=== PATIENT | male | born 1950 ===

== ENCOUNTER 2016-08-19 12:15 | Emergency (ER) | payer BC, OTHER ==
--- NOTE | 2016-08-19 12:18 | UC ---
General HPI - HPI Summary HPI Summary: advise to come to urgent care for evaluation and treatment of low potassium called by MD and told to go to urgent care to get replacement treatment - History of Current Complaint Chief Complaint: UCGeneralIllness Stated Complaint: LOW K Time Seen by Provider: 08/19/16 12:17 Hx Obtained From: Patient Onset/Duration: Gradual Onset, Lasting Days, Still Present Timing: Constant Current Severity: None Pain Intensity: 0 - Allergy/Home Medications Allergies/Adverse Reactions: Allergies Allergy/AdvReac Type Severity Reaction Status Date / Time Levofloxacin [From Levaquin] Allergy Insomnia Verified 08/19/16 12:31 SSRI Allergy Anxiety Uncoded 08/19/16 12:31 Home Medications: Home Medications Ibuprofen [Ibuprofen 200 MG] 200 mg PO Q6H PRN 08/19/16 [History Confirmed 08/19] oxyCODONE/Acetamin 5/325 MG* [Percocet 5/325 TAB*] 1 tab PO Q4H PRN 08/19/16 [ History Confirmed 08/19/16] PMH/Surg Hx/FS Hx/Imm Hx Previously Healthy: No - scarcodosis Cardiovascular History: Hypertension Cancer History: Prostate Cancer Other History Of: Negative For: Anticoagulant Therapy - Surgical History Surgical History: Yes Surgery Procedure, Year, and Place: VASECTOMY, OFFICE. 1992 BRONCHOSCOPY , [facility]. [place] [facility] [place] [facility] [place] - Family History Known Family History: Positive: None Family History: no reported cardio vascular issues in family lineage - Social History Occupation: Retired Lives: With Family Alcohol Use: None Substance Use Type: None Review of Systems Constitutional: Negative Skin: Negative Eyes: Negative ENT: Negative Respiratory: Negative Cardiovascular: Negative Gastrointestinal: Negative Genitourinary: Negative Motor: Negative Neurovascular: Negative Musculoskeletal: Negative Neurological: Negative Psychological: Negative All Other Systems Reviewed And Are Negative: Yes Physical Exam Triage Information Reviewed: Yes Appearance: Well-Appearing, No Pain Distress, Well-Nourished Vital Signs Reviewed: Yes Eye Exam: Normal Eyes: Positive: Conjunctiva Clear ENT Exam: Normal ENT: Positive: Normal ENT inspection, Hearing grossly normal. Negative: Nasal congestion, Nasal drainage, Trismus, Muffled/hoarse voice Dental Exam: Normal Neck exam: Normal Neck: Positive: Supple, Nontender Respiratory Exam: Normal Respiratory: Positive: Chest non-tender, No respiratory distress, No accessory muscle use Cardiovascular Exam: Normal Cardiovascular: Positive: RRR, Pulses Normal, Brisk Capillary Refill Abdominal Exam: Normal Abdomen Description: Positive: Nontender, No Organomegaly, Soft Bowel Sounds: Positive: Present Musculoskeletal Exam: Normal Musculoskeletal: Positive: Strength Intact, ROM Intact, No Edema Neurological Exam: Normal Neurological: Positive: Alert, Muscle Tone Normal Psychological Exam: Normal Skin Exam: Normal Course/Dx - Course Course Of Treatment: transfer to [facility] [place] - Differential Dx - Multi-Symptom Differential Diagnoses: Metabolic Abnormality Provider Diagnoses: low potassium - Physician Notifications Discussed Patient Care With: Barbara Arana Time Discussed With Above Provider: 12:30 Instructed by Provider To: Transfer Discharge - Discharge Plan Condition: Stable Disposition: AGAINST MEDICAL ADVICE
[2016-08-19 12:30] VITALS: BP 141/77
== END 2016-08-19 12:34 | disposition left against medical advice (07) ==
LOC: UCEAST 12:15
DX: E87.6 Hypokalemia (principal); I10 Essential (primary) hypertension; Z85.46 Personal history of malignant neoplasm of prostate
CPT/HCPCS: 93005; 99202; G0463

== ENCOUNTER 2016-08-19 12:56 | Emergency (ER) | payer OTHER ==
[2016-08-19 13:04] VITALS: BP 116/79
[2016-08-19 14:20] LABS: BUN/Creatinine Ratio 11.9 (8-20); Calcium 9.6 mg/dL (8.6-10.3); EGFR Non-African American 52.9 (>60); Potassium 3.5 mmol/L (3.5-5.0)
[2016-08-19] MEDS ORDERED: Potassium Chlor TAB* 20 MEQ TAB.ER PO ONE (14:39)
--- NOTE | 2016-08-19 18:14 | ED ---
Pool Ernst Alfonso, scribed for Brady Osborne MD on 08/19/16 at 1442 . Complex/Multi-Sys Presentation - HPI Summary HPI Summary: This patient is a 65 year old M presenting to [facility] with a chief complaint of low potassium since earlier today. 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 Pt rates the pain 0/10 in severity. Symptoms aggravated and alleviated by nothing. Pt reports chronic flank pain for which he is prescribed Percocet. - History Of Current Complaint Chief Complaint: EDGeneral Time Seen by Provider: 08/19/16 14:33 Hx Obtained From: Patient Onset/Duration: Sudden Onset, Lasting Hours - Earlier today, Still Present Timing: Constant Severity Currently: Mild Severity Initially: Mild Location: Negative Aggravating Factor(s): Nothing Alleviating Factor(s): Nothing - Allergies/Home Medications Allergies/Adverse Reactions: Allergies Allergy/AdvReac Type Severity Reaction Status Date / Time Levofloxacin [From Levaquin] Allergy Insomnia Verified 08/19/16 12:31 SSRI Allergy Anxiety Uncoded 08/19/16 12:31 PMH/Surg Hx/FS Hx/Imm Hx Endocrine/Hematology History: Denies: Hx Anticoagulant Therapy, Hx Diabetes, Hx Thyroid Disease Cardiovascular History: Reports: Hx Hypertension Denies: Hx Pacemaker/ICD Respiratory History: Reports: Hx Chronic Obstructive Pulmonary Disease (COPD), Hx Sleep Apnea - RECENTLY DIAGNOSIS, Other Respiratory Problems/Disorders - OCCASIONAL SHORTNESS OF BREATH Denies: Hx Asthma GI History: Reports: Hx Gastroesophageal Reflux Disease, Hx Hiatal Hernia - SURGICALLY REPAIRED 1999 History: Reports: Other Problems/Disorders - HISTORY OF PROSTATECTOMY Denies: Hx Renal Disease Musculoskeletal History: Reports: Hx Tendonitis - RIGHT ELBOW Sensory History: Reports: Hx Contacts or Glasses - GLASSES Denies: Hx Hearing Aid Opthamlomology History: Reports: Hx Contacts or Glasses - GLASSES Neurological History: Reports: Hx Migraine - SIDE EFFECT OF SARCARDIOSIS, Other Neuro Impairments/Disorders - SYSTEMIC INFLAMMATION Denies: Hx Dementia, Hx Seizures Psychiatric History: Denies: Hx Substance Abuse - Cancer History Cancer Type, Location and Year: prostate - Surgical History Surgery Procedure, Year, and Place: VASECTOMY, OFFICE. 1992 BRONCHOSCOPY , [facility]. 1999 [place] [facility] [place] [facility] [place]x Anesthesia Reactions: No Infectious Disease History: Denies: Hx Hepatitis, Hx Human Immunodeficiency Virus (HIV), Traveled Outside the [place] in Last 30 Days - Family History Known Family History: Negative: Cardiac Disease Family History: no reported cardio vascular issues in family lineage - Social History Alcohol Use: None Substance Use Type: Reports: None Smoking Status (MU): Former Smoker Review of Systems Negative: Fever Positive: Other - Positive chronic flank pain Positive: Other - Positive low potassium" All Other Systems Reviewed And Are Negative: Yes Physical Exam Triage Information Reviewed: Yes Vital Signs On Initial Exam: Initial Vitals Temp Pulse Resp BP Pulse Ox 99.1 F 115 17 116/79 92 08/19/16 13:02 08/19/16 13:02 08/19/16 13:02 08/19/16 13:02 08/19/16 13:02 Vital Signs Reviewed: Yes Appearance: Positive: Well-Appearing, No Pain Distress Skin: Positive: Warm, Skin Color Reflects Adequate Perfusion, Dry Head/Face: Positive: Normal Head/Face Inspection Eyes: Positive: Normal ENT: Positive: Normal ENT inspection Neck: Positive: Supple, Nontender Respiratory/Lung Sounds: Positive: Clear to Auscultation, Breath Sounds Present Cardiovascular: Positive: RRR Abdomen Description: Positive: Nontender, Soft Bowel Sounds: Positive: Present Musculoskeletal: Positive: Normal, Strength/ROM Intact Neurological: Positive: Normal, Sensory/Motor Intact, Alert, Oriented to Person Place, Time, CN Intact II-III Psychiatric: Positive: Affect/Mood Appropriate Diagnostics - Vital Signs Vital Signs Temp Pulse Resp BP Pulse Ox 08/19/16 13:02 99.1 F 115 17 116/79 92 - Laboratory Lab Results: Lab Results 08/19/16 Range/Units 13:29 Sodium 128 L (133-145) mmol/L Potassium 3.5 (3.5-5.0) mmol/L Chloride 89 L (101-111) mmol/L Carbon Dioxide 30 (22-32) mmol/L Anion Gap 9 (2-11) mmol/L BUN 16 (6-24) mg/dL Creatinine 1.35 H (0.67-1.17) mg/dL Est GFR ( Amer) 68.0 (>60) Est GFR (Non-Af Amer) 52.9 (>60) BUN/Creatinine Ratio 11.9 (8-20) Glucose 115 H (70-100) mg/dL Calcium 9.6 (8.6-10.3) mg/dL Result Diagrams: 08/19/16 13:29 Lab Statement: Any lab studies that have been ordered have been reviewed, and results considered in the medical decision making process. Complex Multi-Symp Course/Dx Course Of Treatment: Mr. Pearl was noted on routine bloodwork to have a low K (2.8) on and was sent in with that concern. It had been noted to be dropping and he was advised to stop his diuretic several days ago. Here his K was back up to 3.5 and he was given an oral dose and advised to F/U with his PMD. - Diagnoses Provider Diagnoses: Hypokalemia Discharge - Discharge Plan Condition: Stable Disposition: HOME Patient Education Materials: Hypokalemia (ED), Potassium Content of Foods List (ED) Referrals: Alpesh Monterroso MD [Primary Care Provider] - 2 Days The documentation as recorded by the Pool sunshine Alfonso accurately reflects the service I personally performed and the decisions made by me, Brady Osborne MD.
== END 2016-08-19 14:55 | disposition home or self-care (01) ==
LOC: ED 12:56
DX: E87.6 Hypokalemia (principal); R10.84 Generalized abdominal pain; Z87.891 Personal history of nicotine dependence
CPT/HCPCS: 36415; 80048; 99282; A9270-GY

== ENCOUNTER 2016-09-11 10:40 | Inpatient (IN) | payer OTHER ==
[2016-09-11 12:15] LABS: Hematocrit 30 % (42-52); Hemoglobin 9.9 g/dl (14.0-18.0); Mean Corpuscular HGB Conc 33 g/dl (31-36); Mean Corpuscular Hemoglobin 29 pg (27-31); Mean Corpuscular Volume 86 fL (80-94); Mean Platelet Volume 7 um3 (7.4-10.4); Red Blood Count 3.46 10^6/ul (4.0-5.4); Red Cell Distribution Width 15 % (10.5-15); White Blood Count 14.3 10^3/ul (3.5-10.8)
[2016-09-11 12:29] LABS: Troponin I 0.03 ng/mL (<0.04)
[2016-09-11 12:31] LABS: Urine Bacteria Absent (Absent); Urine Bilirubin Negative (Negative); Urine Glucose 1+(50 mg/dL) (Negative); Urine Nitrite Negative (Negative)
[2016-09-11 12:34] LABS: Albumin 2.6 g/dL (3.2-5.2); BUN/Creatinine Ratio 29.1 (8-20); EGFR African American 56.7 (>60); EGFR Non-African American 44.1 (>60); Globulin 4.1 g/dL (2-4); Potassium 4.5 mmol/L (3.5-5.0); Total Bilirubin 1.5 mg/dL (0.2-1.0); Total Protein 6.7 g/dL (6.4-8.9)
[2016-09-11] MEDS ORDERED: NS 0.9% 1000 ML* 2,900 ML IV ONE (12:39)
--- NOTE | 2016-09-11 12:49 | RAD ---
INDICATION: Altered mental status, adrenal tumor. COMPARISON: There are no prior studies available for comparison. TECHNIQUE: Contiguous axial sections of the brain were obtained from the skull base to the vertex without contrast. FINDINGS: The ventricles, cisterns and sulci are enlarged consistent with age-related atrophy. No significant focal abnormality or mass effect is seen. There is no evidence for hemorrhage. No significant focal osseous abnormality is seen. The visualized portion of the paranasal sinuses and mastoid air cells appear clear. IMPRESSION: NO EVIDENCE FOR ACUTE INTRACRANIAL ABNORMALITY.
--- NOTE | 2016-09-11 13:25 | RAD ---
INDICATION: Altered mental status. Leukocytosis. Prostate and adrenal cancer. History of sarcoidosis. COMPARISON: June 21, 2006 TECHNIQUE: Dual energy PA and routine lateral views of the chest were obtained. REPORT: Moderate LEFT subpulmonic pleural effusion with associated basilar atelectasis. Clear RIGHT lung and pleural space. Elevated lung volumes. Diffuse mild prominence of interstitial markings. Negative for pneumothorax. Negative for cardiomegaly unremarkable central pulmonary vasculature. Nodular bilateral hilar contours and prominent RIGHT paratracheal stripe corresponding with mediastinal and hilar adenopathy on June 15, 2003 CT attributable to sarcoidosis. IMPRESSION: 1. Suggestion of moderate LEFT subpulmonic pleural effusion with associated basilar atelectasis. Pneumonia at the LEFT lung base not entirely excluded. 2. Stigmata of chronic obstructive pulmonary disease. 3. Sarcoidosis with mediastinal and hilar adenopathy as well as probable mild interstitial involvement.
[2016-09-11] MEDS ORDERED: cefTRIAXone VIAL(*) 1,000 MG in NS 0.9% 50 ML* 50 ML IVPB ONE (13:34)
[2016-09-11] MEDS ORDERED: Azithromycin IV(*) 500 MG in NS 0.9% 250 ML* 250 ML IVPB ONE (13:35)
[2016-09-11 13:44] LABS: C Reactive Protein 350.05 mg/L (< 5.00)
[2016-09-11] MEDS ORDERED: Azithromycin IV* 500 MG ADVAN VIAL IVPB ONE (14:14)
[2016-09-11] MEDS ORDERED: Al Hydrox/Mg Hydrox/Simet LIQ* 30 ML UDC PO PRN (14:47)
[2016-09-11] MEDS: traMADol TAB* 50 MG PO PRN (14:58)
[2016-09-11] MEDS ORDERED: NS 0.9% 1000 ML* 1,000 ML IV SCH (15:00)
--- NOTE | 2016-09-11 15:48 | RAD ---
INDICATION: Sarcoidosis. Adrenal mass. COMPARISON: External CT abdomen August 10, 2016; CT chest/abdomen/pelvis June 15, 2003 TECHNIQUE: Axial source images were obtained from the thoracic inlet to the symphysis pubis pubis. The examination was ordered without oral or intravenous contrast thus limiting evaluation of the solid viscera. Coronal and sagittal reconstructed images were acquired. CHEST FINDINGS: Neck/thyroid: The visualized neck to include the thyroid appear normal. Chest wall: There are no acute abnormalities of the bony thorax or chest wall. There is no supraclavicular, infraclavicular, or axillary lymphadenopathy. Lungs : There are multiple centimeter and smaller pulmonary parenchymal masses. These involve the upper and lower lung mcmahon bilaterally. The nodules were not present in 2004. There is new infiltrative change with consolidation in the medial left lung base new since the external 2016 examination. Cardiomediastinal structures: The heart is normal in size. There is no pericardial effusion. There is no evidence of aortic aneurysm or dissection. The pulmonary vessels appear normal. There is extensive mediastinal/hilar lymphadenopathy. Some of the lymph nodes are calcified. This is been documented previously. The esophagus appears normal. There is postoperative change compatible with Mirna fundoplication, however. Pleura : There are no pleural-based masses or effusions. ABDOMINAL/PELVIC FINDINGS: Liver: No abnormality identified on noncontrast imaging. Gallbladder: Contracted gallbladder. Spleen: Mild splenic prominence. No abnormalities identified on noncontrast imaging. Pancreas: Partial fatty replacement. No identifiable mass. Adrenal glands: Normal right adrenal gland. The left adrenal gland mass is now inseparable from a much larger 17.8 x 13.3 cm mass which presumably represents adrenal hemorrhage. There is stranding of the adjacent mesenteric fat. There is significant mass effect with displacement of the left kidney anteriorly.. Kidneys: Displaced left kidney. Nonobstructive left-sided nephrolithiasis. 3.5 cm right renal cyst. Adenopathy: No definitive adenopathy although there are is the large mass noted above which presumably is related to an acute adrenal process. Fluid collections: Presumed large left adrenal hemorrhage. Adjacent stranding. No other free or localized fluid collections.. Vessels: No interval changes. Calcified 2.8 cm splenic arterial aneurysm. The aneurysm is displaced by the large left adrenal region mass GI tract: Limited evaluation without oral intravenous contrast. There are moderate scattered diverticula of the sigmoid colon. Pelvic organs: Prostatectomy Bladder: Normal noncontrast appearance. Abdominal and pelvic soft tissues: No acute findings. Osseous structures: No acute osseous changes. Spondylitic change throughout the thoracal lumbar spine. IMPRESSION: 1. Multiple, nonspecific subcentimeter pulmonary parenchymal masses. This could represent a sequela of sarcoid although other etiologies to include neoplasia are not excluded. 2. New consolidative change left lung base. 3. Mild splenomegaly. 4. There is now a large left adrenal region mass presumably representing acute hemorrhage into a previously identified abnormal left adrenal gland. 5. Scattered diverticula 6. Mirna fundoplication 7. Prostatectomy
[2016-09-11] MEDS ORDERED: Phytonadione Oral Solution* 5 MG/25 ML UDC PO ONE (17:12)
[2016-09-11] MEDS: Acetaminophen TAB* 325 MG PO PRN ×2 (17:55→19:14)
[2016-09-11] MEDS ORDERED: Magnesium Sulfate 1 GM IV* 1 GM/100 ML BAG IV ONE (17:59)
[2016-09-11] MEDS ORDERED: Metoprolol Tartrate IV* 1 MG/ML 5 ML VIAL IV ONE (18:00)
[2016-09-11 18:23] LABS: Add Diff/Slide Review? Slide Review Added; Comments Flag Yes; Hematocrit 29 % (42-52); Hemoglobin 9.6 g/dl (14.0-18.0); Mean Corpuscular HGB Conc 33 g/dl (31-36); Mean Corpuscular Hemoglobin 28 pg (27-31); Mean Corpuscular Volume 85 fL (80-94); Mean Platelet Volume 8 um3 (7.4-10.4); Red Blood Count 3.41 10^6/ul (4.0-5.4); Red Cell Distribution Width 15 % (10.5-15)
[2016-09-11] MEDS ORDERED: Digoxin IV* 0.5 MG/2 ML AMP (0.25 MG/ML) IV SLOW PU ONE (18:30)
[2016-09-11 18:41] LABS: Troponin I 0.06 ng/mL (<0.04)
[2016-09-11] MEDS ORDERED: Furosemide IV* 10 MG/ML 2 ML VIAL (20 MG) ONE (18:41)
--- NOTE | 2016-09-11 18:41 | RAD ---
INDICATION: Short of breath COMPARISON: September 11, 2016 TECHNIQUE: An AP portable view obtained at 1814 hours is submitted. FINDINGS: Bones/Soft Tissues: There are no acute bony findings. Cardiomediastinal: The heart is normal in size. Central pulmonary vessels and interstitium are prominent consistent with interstitial edema. Lungs: Consolidative change left lung base. Diffuse interstitial change at the remaining lung mcmahon. Pleura: Small left-sided effusion. Other: None IMPRESSION: SUSPECT INTERSTITIAL CONGESTION. LEFT BASILAR CONSOLIDATIVE CHANGE WITH SMALL LEFT-SIDED EFFUSION
[2016-09-11] MEDS: Furosemide IV* 10 MG/ML 2 ML VIAL (20 MG) IV ONE ×2 (18:42→18:43)
[2016-09-11] MEDS: Morphine INJ* 2 MG/ML 1 ML SYRINGE IV PRN (19:15)
[2016-09-11] MEDS ORDERED: Acetaminophen TAB* 325 MG PO ONE (19:17)
[2016-09-11] MEDS: Docusate CAP* 100 MG PO SCH (21:22)
[2016-09-11] MEDS ORDERED: Heparin VIAL(*) 5000 UNITS/ML VIAL (FIVE THOUSAND) SUBCUT SCH (22:00)
[2016-09-11 22:45] LABS: Hematocrit 29 % (42-52); Hemoglobin 9.3 g/dl (14.0-18.0)
[2016-09-11 23:50] LABS: Calcium 8.5 mg/dL (8.6-10.3); EGFR African American 64.1 (>60); EGFR Non-African American 49.9 (>60); Potassium 4.6 mmol/L (3.5-5.0)
--- NOTE | 2016-09-12 02:23 | HP ---
TWO ADDENDUMS ARE NOW INCLUDED ON THIS REPORT CC: Dr. Monterroso; Dr. Gilbert, Cardiology; Dr. Vaz, Endocrinology, [place] ; Dr. Flip Kiran, Surgery, [place] * HISTORY AND PHYSICAL: DATE OF ADMISSION: 09/11/16 PRIMARY CARE PROVIDER: Dr. Monterroso. CHIEF COMPLAINT: Altered mental status and generalized weakness. HISTORY OF PRESENT ILLNESS: Robson Pearl is a 65-year-old male with a history of sarcoidosis, gastroesophageal reflux disease, prostrate cancer, status post prostatectomy who was diagnosed with left adrenal gland mass of over [address] done at the [place] office on 08/10/16. In the past month, he had been evaluated by Dr. Monterroso and was planning to see an tire fabric impregnating range tender, Dr. Vaz. He also was planning to see Dr. Kiran from surgical department. He was also planning to see Dr. Gilbert for cardiac clearance for possibility of surgery. The patient stated that for the past 2 months, he had been having left flank pain and that is why the CAT scan was originally ordered. For the past 2 weeks , he had been using tramadol for pain control and had been more lethargic, has had less appetite and had been intermittently confused. The patient's also noted decreased muscle mass in bilateral lower extremities and problems with dyspnea on exertion and walking. They apparently had to stop [address] from the parking lot to the emergency department prior to today's arrival. The patient also had been coughing and short of breath. The patient was noted to be hyponatremic with marked elevation of C-reactive protein. At this point, working diagnosis is pneumonia, but he also has hyponatremia and marked dehydration as well as acute renal failure. He is going to be admitted to the hospital. Anticipated time of stay was approximately 3 days. PAST MEDICAL HISTORY: 1. New left adrenal gland mass that was noticed to be at over 8 cm and partially necrotic. 2. History of sarcoidosis. 3. History of gastroesophageal reflux disease. 4. History of BPH. 5. History of prostrate cancer, status post prostatectomy. 6. History of Mirna fundoplication in the past. 7. History of bleeding internal hemorrhoids in the remote past. 8. History of inguinal hernia repair. 9. History of coronary artery disease, status post remote cardiac catheterization at [facility], which shows as per the patient 20% stenosis of one of his arteries. 10. History of hypertension. 11. History of splenic artery aneurysm. MEDICATIONS: The patient used to be on hydralazine for blood pressure control as well as and Cardura, and ranitidine. He discontinued all his medications apart from Ultram that he takes at 25 to 50 mg on a p.r.n. basis. ALLERGIES: Include LEVAQUIN causes bad dreams and SSRIs cause anxiety. FAMILY HISTORY: Positive for father, who at the age of 65 secondary to NH. Mother at the age of 89 secondary to Alzheimer's. SOCIAL HISTORY: The patient has a history of approximately 20-vvyc-jtvf smoking and quit at the age of 59. He drinks alcohol occasionally, none in the past month. He denies any drug use. He is retired from maintenance work. His is also retired nurse. His is his surrogate, Magali Pearl. REVIEW OF SYSTEMS: Please see history of present illness. As above mentioned, the patient complains of chronic left flank pain. His appetite had been really poor and his had been trying to feed him approximately 30 ounces a day of Ensure. His bowels have been moving regularly. He complains of cough and shortness of breath, but denies fevers. The patient lost approximately 25 pounds in the past month. He also had been falling and getting generalized weakness. He also had been confused. All of the remaining 14 systems were reviewed with the patient and the patient's and are otherwise negative. PHYSICAL EXAMINATION GENERAL: The patient is a pleasant 65-year-old male who is in no acute distress. The patient is pleasant and cooperative with evaluation. The patient states that the year is 2016, but the month is April. He is otherwise aware to place and he is able to give me his detailed information of his past medical history. VITAL SIGNS: Blood pressure of 110/76, heart rate of 115 and regular, respiratory rate 18, but it was 24 on arrival, oxygen saturation of 99% on 4 L of oxygen nasal cannula, 92% on room air, temperature of 98.5. HEENT: Head: Atraumatic, normocephalic. Eyes: Pupils are equal, reactive to light and accommodation. Oropharynx clear. Mucosa dry. NECK: Supple. No JVD. No bruits bilaterally. RESPIRATORY: Rhonchi at bilateral bases, right more than left. CARDIOVASCULAR: Regular rate and rhythm. No murmur. ABDOMEN: Protuberant, tympanic to percussion, soft, and nontender.A palpable left abdominal mass at 15 cm in diam present. Bowel sounds present in all 4 quadrants. The patient indicates the left flank as where his pain occurs, but he has no point tenderness on bilateral flank palpation. EXTREMITIES: There is no edema. Pulses +2 bilaterally. There is no clubbing or cyanosis. On evaluation of the bilateral lower extremities, notable for muscle atrophy and wasting in bilateral lower extremities musculature. NEUROLOGIC: Speed clear. Cranial nerves II through XII grossly intact. Motor strength is 5/5 bilaterally. SKIN: No ecchymotic areas or rashes noted. PSYCHIATRIC: Mild disorientation noted. No evidence of anxiety or depression. The patient appears chronically ill. LABORATORY DATA: Showed sodium of 123, potassium 4.5, chloride 88, carbon dioxide 25, BUN 46, creatinine 1.58, glucose is 230. Liver functions tests showed bilirubin of 1.5, alkaline phosphatase of 129, AST of 38, ALT of 19, albumin of 2.6. Lactic acid of 2.9. CBC: White blood cell count of 14.3, hemoglobin of 9.9, hematocrit of 30, MCV of 86, platelets of 120. Urinalysis showed +1 protein, +2 blood, +1 white blood cells. No bacteria on evaluation. Portable chest x-ray impression: "Suggestion of moderate left subpulmonic pleural effusion with associated bibasilar atelectasis. Pneumonia at the left lung base not entirely excluded. Stigmata of chronic obstructive pulmonary disease. Sarcoidosis with mediastinal and hilar adenopathy as well as probable mild interstitial involvement. Brain CT impression: "No evidence of acute intracranial abnormality." The patient's EKG showed sinus tachycardia with a heart rate of 121 beats per minute with old inferior infarct that is comparable with prior EKGs. ASSESSMENT AND PLAN: At this point, the patient is septic according to SOFA criteria with increased respiratory rate, also his mental status, increased bilirubin and increased creatinine. At this point, the source of sepsis is most likely pneumonia. Although chest x-ray is not read as pneumonia per se, the patient is clinically appears to have pneumonia and I think that the dehydration makes the infiltrate not visible at this point. The patient is going to be continued on ceftriaxone and azithromycin that was already started in the emergency department. Blood cultures as well as urine urine Legionella and Strep pneumo antigens are going to be obtained. In regards to the patient's hyponatremia, it is most likely due to dehydration and intravenous fluids are going to be provided. The patient's acute renal failure is most likely a combination of dehydration and sepsis. I do not believe the patient has an urinary tract infection at this point. We will continue intravenous hydration and continue to monitor. The patient's normocytic anemia may be related to his ongoing problems with adrenal mass. We will continue following up with that. The patient also is malnourished that is noted by decreased albumin level, muscle atrophy in bilateral lower extremities as well as weight loss of 25 pounds in the past 1 month. For severe malnutrition, nutrition consult is going to be provided and Ensure 3 times a day one can is going to be also provided. In regards to the patient's adrenal mass. Unfortunately, we do not have the surgical support for the patient to be evaluated for possibility of surgery. I will obtain the CT of chest, abdomen, and pelvis without contrast due to the patient's renal failure to evaluate further. The patient does have an ongoing evaluation with Endocrinology and Surgery in the [facility]. For DVT prophylaxis, the patient is going to be placed on heparin subcutaneously. Code status: Full code status that was discussed with the patient and the patient's , both agree. TOTAL TIME SPENT: Approximately 75 minutes were spent on the admission of this complicated patient; more than half of that time was spent face to face with the patient during the interview and physical exam. ADDENDUM NO.1: Please note that the patient's CT of the chest, abdomen, and pelvis showed a new retroperitoneal hematoma, most likely bleeding from the adrenal gland mass. The hematoma is approximately 17 x 13 cm. I spoke with Dr. Flip Kiran from [facility]. It was noted that the patient does have retroperitoneal hematoma and Dr. Kiran recommended that the patient be treated medically but if he continues to bleed, he needs to be transferred to [facility] for further treatment. At this point, the patient is going to be continued to treat with intravenous fluids. Due to this that his hemoglobin at this point is 9 and he is not hemodynamically unstable, I will not transfuse him yet. He is going to have a CBC drawn tonight as well as coagulation panel is going to be obtained and added on to his laboratory values from the ED. ADDENDUM NO.2: On a followup visit, the patient was noted to have temperature of 102 degrees, heart rate of 140, noted to have respirations in the 40s, and needed 5 L of oxygen to keep her oxygen saturation at 95% on room air. His blood pressures have been in the 120s. His EKG showed sinus tachycardia versus a flutter. His chest x-ray showed interstitial congestion, left basilar consolidative change with small left-sided pleural effusion. At that point, the patient was diagnosed with CHF. He also was febrile. He was transferred to the intensive care unit, given 40 mg of IV Lasix. His IV fluids were stopped. Currently, he feels much more comfortable, although he is still slightly disoriented. [id number]/CPS #: [id number] #: [id number]/CPS #: [id number] [facility]
[2016-09-12] MEDS: traMADol TAB* 50 MG PO PRN (03:21)
--- NOTE | 2016-09-12 03:47 | HP ---
HISTORY AND PHYSICAL: * ADDENDUM: Please note that the patient's CT of the chest, abdomen, and pelvis showed a new retroperitoneal hematoma, most likely bleeding from the adrenal gland mass. The hematoma is approximately 17 x 13 cm. I spoke with Dr. Flip Kiran from [facility]. It was noted that the patient does have retroperitoneal hematoma and Dr. Kiran recommended that the patient be treated medically but if he continues to bleed, he needs to be transferred to [facility] for further treatment. At this point, the patient is going to be continued to treat with intravenous fluids. Due to this that his hemoglobin at this point is 9 and he is not hemodynamically unstable, I will not transfuse him yet. He is going to have a CBC drawn tonight as well as coagulation panel is going to be obtained and added on to his laboratory values from the ED. [id number]/CPS #: [id number] MTDD
[2016-09-12 06:31] LABS: BUN/Creatinine Ratio 31.3 (8-20); Calcium 8.4 mg/dL (8.6-10.3); EGFR African American 61.6 (>60); EGFR Non-African American 47.9 (>60); Hematocrit 27 % (42-52); Hemoglobin 8.8 g/dl (14.0-18.0); Magnesium 2.2 mg/dL (1.9-2.7); Mean Corpuscular HGB Conc 32 g/dl (31-36); Mean Corpuscular Hemoglobin 28 pg (27-31); Mean Corpuscular Volume 87 fL (80-94); Potassium 4.4 mmol/L (3.5-5.0); Red Blood Count 3.12 10^6/ul (4.0-5.4); Red Cell Distribution Width 15 % (10.5-15); White Blood Count 14.2 10^3/ul (3.5-10.8)
[2016-09-12 06:34] LABS: Comments Flag Yes
[2016-09-12 06:35] LABS: Add Diff/Slide Review? Slide Review Added
--- NOTE | 2016-09-12 07:15 | HP ---
HISTORY AND PHYSICAL:* ADDENDUM: On a followup visit, the patient was noted to have temperature of 102 degrees, heart rate of 140, noted to have respirations in the 40s, and needed 5 L of oxygen to keep her oxygen saturation at 95% on room air. His blood pressures have been in the 120s. His EKG showed sinus tachycardia versus a flutter. His chest x-ray showed interstitial congestion, left basilar consolidative change with small left-sided pleural effusion. At that point, the patient was diagnosed with CHF. He also was febrile. He was transferred to the intensive care unit, given 40 mg of IV Lasix. His IV fluids were stopped. Currently, he feels much more comfortable, although he is still slightly disoriented. [id number]/[facility] #: [id number] [facility]INE HOSPITALKatey
[2016-09-12] MEDS: Morphine INJ* 2 MG/ML 1 ML SYRINGE IV PRN (07:42)
[2016-09-12] MEDS: Acetaminophen TAB* 325 MG PO PRN (07:54)
[2016-09-12] MEDS: Docusate CAP* 100 MG PO SCH ×2 (07:54→21:20)
--- NOTE | 2016-09-12 07:56 | CONS ---
CC: [facility]; Dr. Alpesh Monterroso of [facility] * CONSULTATION REPORT: DATE OF CONSULT: 09/11/16 REFERRING PROVIDER: Dr. Francoise Sánchez, Hospitalist. The patient seen in consultation in the intensive care unit bed #7. REASON FOR CONSULT: Possible hemorrhage of the large left adrenal mass. HISTORY OF PRESENT ILLNESS: It should be noted that the history for this consultation is taken entirely from the patient's old records which are present as well as the CAT scan done today due to his present mental status and not able to obtain an accurate history or review of systems. Mr. Robson Pearl is a 65-year-old gentleman, the patient of Dr. Monterroso from the [facility]. Apparently, he had been having some left flank and lower back discomfort and underwent a CAT scan of the abdomen and pelvis in July at the [facility] which showed a 6 to 7-mm mass in the left adrenal gland worrisome for a malignancy. Endocrine workup was unremarkable-it appeared to be a nonfunctional lesion and he was to be scheduled after a cardiac evaluation and clearance for an open left adrenalectomy at the [facility] sometime in September. He does have a history of sarcoidosis as well. A He also has a history of coronary artery disease, obstructive sleep apnea, prostate cancer, and a known splenic artery aneurysm. He presented to the emergency room today with weakness, pain in the left flank and abdomen, and mental status changes. He was noted to have a white blood cell count of 14,000 and a hemoglobin of 9.9. INR was slightly elevated at 1.43. Noted to have an elevated BUN and creatinine at 36 and 1.6 and a sodium of 123. Lactic acid was 2.9. He had a C-reactive protein of 350. He underwent a CT scan of his brain which was unremarkable for any acute changes. Chest x-ray was not particularly impressive, although there appeared to be a left lower lobe atelectasis and possible pleural effusion along with obstructive pulmonary disease. In light of his flank pain and this known adrenal mass which was presumed to be malignant, he underwent a CT scan of his chest, abdomen, and pelvis. This was done without IV contrast due to his elevated creatinine. I did review these images. On the abdominal portion of the study, there appears to be a large left retroperitoneal mass which is fairly well encapsulated and appears to be separate from what is felt to be the adrenal mass as well as the kidney which is shifted anteriorly. Radiologist here read this as presumed hemorrhage from the adrenal mass. There is no free intra-abdominal fluid or air. It is really fairly well encapsulated and has a homogenous appearance of its contents. This measures approximately 18 cm x 13 cm and is somewhat irregular. There is some stranding surrounding it. There is no air in the fluid collection and the wall does not appear to be thickened. He was initially admitted to the medical floor where he developed some rapid heart rate and worsening mental status change and was transferred to the intensive care unit. PAST MEDICAL HISTORY: As per above and all taken from the old records. Includes sarcoidosis, prostate cancer, splenic artery aneurysm, tobacco disuse, hypertension, dyslipidemia, and benign prostatic hypertrophy. PAST SURGICAL HISTORY: 1. Laparoscopic Mirna fundoplication. 2. Prostatectomy. 3. Inguinal hernia repair. 4. Cardiac catheterization. ALLERGIES: LACTOSE, LEVAQUIN, PROZAC, and WELLBUTRIN. SOCIAL HISTORY: I am not able to obtain his history. REVIEW OF SYSTEMS: Also unable to be obtained. PHYSICAL EXAM: Temperature 100.5, pulse 150, blood pressure 118/61. General: He is a slender slightly unkempt male who was somewhat restless, but he appears to be in no apparent distress. He is not oriented to place or time, just oriented to name. His abdomen is protuberant, but soft. He has some laparoscopic incision in the upper abdomen without hernia. He had diminished bowel sounds throughout. He has an obvious protuberance in the left flank and lateral abdomen which is firm and nontender. There is no evidence of ecchymosis. He has no peritoneal signs, rebound, or guarding. There is no abnormality in the back area or flank on either side. Overlying skin appears to be normal. IMPRESSION: Recently diagnosed left adrenal mass, worrisome for malignancy. This is endocrinologically nonfunctional. I do not see what biopsies have been obtained. He does have a history of sarcoidosis and it was planned for an open left adrenalectomy at the [facility] sometime in September. He was admitted with mental status changes, dehydration, and acute renal failure. It should be noted that his last hemoglobin noted was 13 in July and is now 9.9 in a dehydrated hypovolemic state. Certainly, this decrease could be to hemorrhage, although I do not believe that he has signs and symptoms of acute hemorrhagic shock and the appearance on the CT scan may not be completely consistent with acute hemorrhage. PLAN/RECOMMENDATIONS: I discussed the care with Dr. Sánchez. He is going to be started on broad-spectrum intravenous antibiotics and continue the fluid resuscitation. She has talked with a surgeon at the [facility] and there is discussion and concern for a possible planned transfer to the [facility] for further care. At this point, I do not believe that there is acute hemorrhage but would recommend checking serial hemoglobins as we continue the resuscitation. Further workup will be necessary when his condition is improved and if there is evidence of signs of bleeding he should be transferred to a higher level of care for consideration of angiogram with possible embolization; hopefully this will not be necessary. Consideration to percutaneous drainage may given depending on the clinical course. This does not appear to be an abscess but certainly this needs to be kept in mind in identifying the etiology of his sepsis. Thanks you for the consultation. There is no need for any urgent surgical intervention at this point and we will follow closely. [id number]/CPS #: [id number] [place]
[2016-09-12] MEDS ORDERED: Furosemide IV* 10 MG/ML 2 ML VIAL (20 MG) ONE (08:19)
[2016-09-12] MEDS ORDERED: Furosemide IV* 10 MG/ML 2 ML VIAL (20 MG) IV ONE (08:25)
[2016-09-12] MEDS ORDERED: Acetaminophen TAB* 325 MG PO ONE (09:05)
[2016-09-12] MEDS ORDERED: Vancomycin per Pharmacy* NOTE FOLLOW UP PRN (09:12)
--- NOTE | 2016-09-12 09:13 | PN ---
Progress Note - Progress Note Date of Service: 09/12/16 Note: Pt was seen today for respiratory distress. confused, RR 45, 02 sat 90% on % L 02, temp 102. Rales noted on b/l lung ascultation Palpable mass in L abdomen -unchanged from prior. Pt hjas severe sepsis and hypoxemic respiratory failure due to likely pneumonia , but other source of infection not excluded. D/w DR. Reid Will add Vancomycin to Ceftriaxone /Azithro. Pt will be transferred to ICU service. Spoke with and informed about possible intubation today. Vapotherm started pCXR and blood cx ordered.
[2016-09-12 09:37] LABS: PCO2 Arterial 26 mmHg (35-45)
--- NOTE | 2016-09-12 09:49 | PN ---
Progress Note - Progress Note Date of Service: 09/12/16 Note: Re-checked on pt. RR 31, temp 103.2 (after Tylenol 650 +500 mg one hour ago), SBP 80 , HR 145. Pt is alert, oriented x 2, appear more comfortable with WOB on Vapotherm at 40 L , Fi02 at 100%(02 sat 97%) Family by the bedside IVF - 1L wide open ordered PICC ordered. If BP doesn't respond to IVF he may need pressors. ABG , pCXR pending. D/w Dr. Reid who be able to see pt in approx 30 min.
[2016-09-12] MEDS ORDERED: Vancomycin(*) 1,000 MG in NS 0.9% 250 ML* 250 ML IVPB ONE (10:00)
[2016-09-12] MEDS ORDERED: NS 0.9% 1000 ML* 1,000 ML IV ONE ×2 (10:25→15:24)
--- NOTE | 2016-09-12 10:53 | RAD ---
Indication: Worsening shortness of breath. COPD Comparison: September 11, [address] Technique: Upright AP 1025 hours Report: Elevated lung volumes. Mild prominence of interstitial markings. Patchy alveolar consolidation without significant interval change. Small dependent LEFT pleural effusion and basilar atelectasis. Negative for pneumothorax. Negative for cardiomegaly. Prominent orestes and RIGHT paratracheal stripe corresponding with lymphadenopathy on CT. Unremarkable central pulmonary vasculature. IMPRESSION: Stigmata of chronic obstructive pulmonary disease and emphysema with superimposed patchy alveolar consolidation corresponding with nodules on CT. Small LEFT pleural effusion and basilar consolidation which may represent atelectasis or potentially inflammatory infiltrate. Mediastinal and hilar lymphadenopathy. While nonspecific the findings may reflect sarcoidosis. No significant interval change.
[2016-09-12] MEDS ORDERED: Albumin Human 5%* 250 ML BTL IV ONE (11:15)
[2016-09-12] MEDS ORDERED: Phenylephrine INJ* 50 MG in NS 0.9% 250 ML* 245 ML IV SCH (12:00)
[2016-09-12] MEDS ORDERED: Zosyn per Pharmacy* NOTE FOLLOW UP SCH (12:00)
--- NOTE | 2016-09-12 13:17 | CONSULT ---
Consult Consult: CRITICAL CARE MEDICINE DATE: 09/12/2016 TIME: 1100 PRIMARY CARE PROVIDER: Loc REFERRING PROVIDER: Princess REASON/CHIEF COMPLAINT: acute hypoxic resp failure HISTORY OF PRESENT ILLNESS: 65 M with recent workup for Left adrenal mass (~8cm ) from CT scan 08/10/2016 with surgical eval at with elective scheduled for later this month, presenting with continued decline at home over last few weeks with lethargy, anorexia, and now confusion. Admitted and developed fever. tx for cap. still worse this am with more septic signs and icu consulted. pt on vaoptherm and given antipyretics. REVIEW OF SYSTEMS: As per HPI. PAST MEDICAL HISTORY: As per HPI. htn, sarcoid, gerd, fundoplication, prostate ca s/p prostatectomy, splenic artery stent post aneurysm, inguinal hernia repair MEDICATIONS: Reviewed. stopped meds other then ultram prn ALLERGIES: levoquin SOCIAL HISTORY: Reviewed. marrired, 7 kids, quit tob 2009 FAMILY HISTORY: Noncontributory at present. PHYSICAL EXAM: Vital Signs: Reviewed. Hr 120s, SBP 70-80s. RR ~20, temp up to 102. Neurologic: awake, communicating, nonfocal, mild encephalopathy HEENT: anicteric, trammell, mm dry Cardiovascular: tachy, s1 s2, no m Respiratory: crackles bl L>R Abdomen: distended, soft, left flank palpable Extremities: cool to touch Access: piv with picc ordered LABS: Reviewed. IMAGING: Reviewed. CT with post left adrenal hemorrhage, subacute MEDICATIONS: Reviewed. ASSESSMENT: 65 M Septic shock - question source: lungs do not seem to be the primary, ua neg, abd more associated with post hemorrhage, and question if hematoma now infected. Acute renal injury on admission Mild lactic acidosis Mild septic encephalopathy Acute hypoxic respiratory failure Malnutrition moderate degree Left adrenal hemorrhagic tumor Anemia of acute on chronic disease PLAN: Neurologic: awake, communicating. need to abort fever. tylenol and 4C saline given with external cooling. Ct head benign. Cardiovascular: perfusing, but high demands. quell fever. Intravascular deplete but taking ebb phase now with increasing interstial fluid. 4C saline now and then f/u with albumin load and avoid extra lung water as able. low dose pressors from there. no steriod need yet. consider echo to enusre not a catecholamine induced failure. Respiratory: tolerating on high flow O2 with better oxygenation and ventilation. dec demands may help dramatically. resp alkalosis on abg indicative of his demands, but able to compensate for now. discussed potentials for intubations but also hopefully can ride out HFO2 today instead and avoid ailments of ppv. Gastrointestinal: npo for the moment. sup. nutrition eval when po resumed. surgery has evaluated and no urgent needs. will need to f/u h&h (although should still dilute now) and potential imarging f/u of bleed to enure self tamponade. would avoid any surgical dynamics with his acute ailemnts, but will ultimately need surgical resection. agree with surgical consult that pt would be unlikely to need embolization. Will need to follow closely for tamponade and potential complications. Renal/Metabolic: cody on admission. maintaining. f/u for compromise and maintain perfusion. Infectious Disease: given abx already, but given unclear source would utilize vanco/zosyn for now. f/u bc. Hematology: should diluite further. bleed seems more subacute but needs f/u. no indication for blood at this time, but f/u risk benefit. plts were holding ok. holding on vte prophylaxis today. Endocrine: no steroid indication at this time. f/u Musculoskeletal: bedrest currently. pain control prn Psych/Social: family updated and pt and expressed understanding. if course becomes more surgically necessary, would consider transfer to [facility], but also indicates if no urgent need she would rather pt remain here. Supportive and preventative care as ordered. SUP: H2 VTE prophylaxis: scds Gonzalez catheter given critical illness, monitoring needs for accurate assessment of CODY and KDIGO criteria for critically ill patients and to avoid potential harms of urinary retention, skin breakdown/ulcers. Disposition: transfer to ICU care Code Status: Full Critical Care Time: 70min Marie Wright DO
[2016-09-12] MEDS ORDERED: cefTRIAXone VIAL(*) 1,000 MG in NS 0.9% 50 ML* 50 ML IVPB SCH (13:30)
--- NOTE | 2016-09-12 13:52 | PN ---
Progress Note - Progress Note Date of Service: 09/12/16 SOAP: Subjective: Events of last night noted He is more alert and oriented. Not restless No complaints of abdominal pain Requiring pressors for blood pressure support Objective: Temp Pulse Resp BP Pulse Ox 97.9 F 112 20 84/67 100 09/12/16 11:10 09/12/16 13:31 09/12/16 13:31 09/12/16 13:31 09/12/16 13:31 PEX: Abdomen remains protuberant and slightly firm. There is firm mass on left flank and lateral abdomen, unchanged from yesterday. No rebound, guarding or peritoneal signs Laboratory Last Values WBC 14.2 10^3/ul (3.5-10.8) H 09/12/16 05:45 RBC 3.12 10^6/ul (4.0-5.4) L 09/12/16 05:45 Hgb 8.8 g/dl (14.0-18.0) L 09/12/16 05:45 Hct 27 % (42-52) L 09/12/16 05:45 MCV 87 fL (80-94) 09/12/16 05:45 MCH 28 pg (27-31) 09/12/16 05:45 MCHC 32 g/dl (31-36) 09/12/16 05:45 RDW 15 % (10.5-15) 09/12/16 05:45 Plt Count 180 10^3/ul (150-450) 09/12/16 05:45 MPV 8 um3 (7.4-10.4) 09/11/16 18:00 Neut % (Auto) 94.8 % (38-83) H 09/12/16 05:45 Lymph % (Auto) 1.7 % (25-47) L 09/12/16 05:45 Wallace % (Auto) 3.1 % (1-9) 09/12/16 05:45 Eos % (Auto) 0.1 % (0-6) 09/12/16 05:45 Baso % (Auto) 0.3 % (0-2) 09/12/16 05:45 Absolute Neuts (auto) 13.5 10^3/ul (1.5-7.7) H 09/12/16 05:45 Absolute Lymphs (auto) 0.2 10^3/ul (1.0-4.8) L 09/12/16 05:45 Absolute Monos (auto) 0.4 10^3/ul (0-0.8) 09/12/16 05:45 Absolute Eos (auto) 0 10^3/ul (0-0.6) 09/12/16 05:45 Absolute Basos (auto) 0 10^3/ul (0-0.2) 09/12/16 05:45 Absolute Nucleated RBC 0.05 10^3/ul 09/12/16 05:45 Nucleated RBC % 0.4 09/12/16 05:45 INR (Anticoag Therapy) 1.32 (0.89-1.11) H 09/12/16 05:45 APTT 33.3 seconds (26.0-36.3) 09/11/16 11:54 Patient Temperature Not Reportable 09/12/16 09:25 ABG pH 7.51 (7.35-7.45) H 09/12/16 09:25 ABG pCO2 26 mmHg (35-45) L 09/12/16 09:25 ABG pO2 71 mmHg (80-100) L 09/12/16 09:25 ABG HCO3 23.8 mmol/L (19-31) 09/12/16 09:25 ABG O2 Saturation 96.7 % (95-98) 09/12/16 09:25 ABG Base Excess -1.4 (-2.0-2.0) 09/12/16 09:25 Respiration Rate Not Reportable 09/12/16 09:25 O2 Delivery Device Vapo 09/12/16 09:25 Ventilator Type Not Reportable 09/12/16 09:25 Vent Mode Not Reportable 09/12/16 09:25 FiO2 Not Reportable 09/12/16 09:25 Inspiratory Time Not Reportable 09/12/16 09:25 PEEP Not Reportable 09/12/16 09:25 Pressure Support Not Reportable 09/12/16 09:25 Pressure Control Not Reportable 09/12/16 09:25 EPAP Not Reportable 09/12/16 09:25 IPAP Not Reportable 09/12/16 09:25 BiPAP Not Reportable 09/12/16 09:25 Sodium 127 mmol/L (133-145) L 09/12/16 05:45 Potassium 4.4 mmol/L (3.5-5.0) 09/12/16 05:45 Chloride 93 mmol/L (101-111) L 09/12/16 05:45 Carbon Dioxide 25 mmol/L (22-32) 09/12/16 05:45 Anion Gap 9 mmol/L (2-11) 09/12/16 05:45 BUN 46 mg/dL (6-24) H 09/12/16 05:45 Creatinine 1.47 mg/dL (0.67-1.17) H 09/12/16 05:45 Est GFR ( Amer) 61.6 (>60) 09/12/16 05:45 Est GFR (Non-Af Amer) 47.9 (>60) 09/12/16 05:45 BUN/Creatinine Ratio 31.3 (8-20) H 09/12/16 05:45 Glucose 152 mg/dL (70-100) H 09/12/16 05:45 Lactic Acid 4.2 mmol/L (0.5-2.0) H* 09/12/16 12:00 Calcium 8.4 mg/dL (8.6-10.3) L 09/12/16 05:45 Magnesium 2.2 mg/dL (1.9-2.7) 09/12/16 05:45 Total Bilirubin 1.50 mg/dL (0.2-1.0) H 09/11/16 11:54 AST 38 U/L (13-39) 09/11/16 11:54 ALT 19 U/L (7-52) 09/11/16 11:54 Alkaline Phosphatase 129 U/L (34-104) H 09/11/16 11:54 Troponin I 0.03 ng/mL (<0.04) 09/12/16 00:50 C-Reactive Protein 350.05 mg/L (< 5.00) H 09/11/16 11:54 Total Protein 6.7 g/dL (6.4-8.9) 09/11/16 11:54 Albumin 2.6 g/dL (3.2-5.2) L 09/11/16 11:54 Globulin 4.1 g/dL (2-4) H 09/11/16 11:54 Albumin/Globulin Ratio 0.6 (1-3) L 09/11/16 11:54 Urine Color Laura 09/11/16 11:54 Urine Appearance Cloudy 09/11/16 11:54 Urine pH 5.0 (5-9) 09/11/16 11:54 Ur Specific Harmans 1.021 (1.010-1.030) 09/11/16 11:54 Urine Protein 1+(30 mg/dl) (Negative) H 09/11/16 11:54 Urine Ketones Negative (Negative) 09/11/16 11:54 Urine Blood 2+ (Negative) H 09/11/16 11:54 Urine Nitrate Negative (Negative) 09/11/16 11:54 Urine Bilirubin Negative (Negative) 09/11/16 11:54 Urine Urobilinogen Negative (Negative) 09/11/16 11:54 Ur Leukocyte Esterase Negative (Negative) 09/11/16 11:54 Urine WBC (Auto) 1+(6-10/hpf) (Absent) H 09/11/16 11:54 Urine RBC (Auto) 2+(6-10/hpf) (Absent) H 09/11/16 11:54 Ur Squamous Epith Cells Present (Absent) H 09/11/16 11:54 Urine Bacteria Absent (Absent) 09/11/16 11:54 Urine Glucose 1+(50 mg/dl) (Negative) H 09/11/16 11:54 Assessment: Sepsis-origin at present not clear Known left adrenal mass most likely malignant with apparent hemorrhage resulting in large left retroperitoneal mass. No evidence of acute hemorrhage, question possibility of ? infected fluid collection although no air in collection and wall not thickened. Plan: Continue IV antibiotics No indication for acute surgical intervention at present. Supportive care. Will follow
[2016-09-12] MEDS ORDERED: Perflutren Lipid Microsphere* 3 ML VIAL ONE (13:53)
[2016-09-12] MEDS ORDERED: Azithromycin IV(*) 500 MG in NS 0.9% 250 ML* 250 ML IVPB SCH (14:00)
--- NOTE | 2016-09-12 15:42 | ECHO ---
Patient: SURINDER GUZMAN [facility] Rec#: [id number] : 1950 Date: 09/12/2016 Age: 65y Height: 182.88 cm / 72.0 in Weight: 88.9 kg / 195.9 lbs Sex: M BSA: 2.11 Room#: ICU 7 Admit Date#: 09/11/2016 Type: Inpatient Referring: Michele Wright Reading: Champ Palencia MD Animal Pathologist: Mahsa Newman,SOTEROCS,RDMS CC: Alpesh Monterroso MD Transthoracic Echocardiogram Indication: Respiratory failure, septic shock BP: 78/58 HR: 110 Rhythm: Tachycardia Findings History: Sarcoidosis, CAD, HTN, former smoker, prostate cancer Technical Comments: The study quality is poor. Completed 1440 Left Ventricle: The left ventricular chamber size is normal. Mild concentric left ventricular hypertrophy is observed. The estimated ejection fraction is 55-60%. TDS and the endocardium is not well visualized. Abnormal left ventricular diastolic filling is observed, consistent with impaired relaxation. Left Atrium: The left atrium is slightly dilated. Right Ventricle: The right ventricle is mildly dilated. The right ventricular global systolic function is mildly reduced. Right Atrium: The right atrial cavity size is normal. Aortic Valve: The aortic valve is trileaflet. Systolic excursion of the aortic valve is normal. There is no evidence of aortic regurgitation. There is no evidence of aortic stenosis. Mitral Valve: The mitral valve leaflets appear normal. There is no evidence of mitral regurgitation. There is no evidence of mitral stenosis. Tricuspid Valve: The tricuspid valve leaflets are normal. There is trace tricuspid regurgitation. Unable to estimate the right ventricular systolic pressure. Pulmonic Valve: The pulmonic valve structure is not well visualized. Pericardium: There is no significant pericardial effusion. Aorta: The ascending aorta is not well visualized. There is no dilatation of the aortic arch. There is mild dilatation of the aortic root. Pulmonary Artery: The main pulmonary artery is not well visualized. Venous: The inferior vena cava appears normal in size. There is an approximate 50% respiratory change in the inferior vena cava dimension. Contrast: Definity was used to optimize study. A total of 5 ml was used Summary: There was not any prior study for comparison. Conclusions TDS and limited. The left ventricular chamber size is normal. Mild concentric left ventricular hypertrophy is observed. The estimated ejection fraction is 55-60%. TDS and the endocardium is not well visualized. The left atrium is slightly dilated. There is trace tricuspid regurgitation. There is mild dilatation of the aortic root. Measurements Name Value Normal Range RVIDd (AP) 2D 2 cm (0.9 - 2.6) RAd ISD 4CH 4.1 cm (3.4 - 4.9) RA (A4C)W 4.3 cm (2.9 - 4.6) IVSd (2D) 1.1 cm (0.6 - 1) LVPWd (2D) 1.2 cm (0.6 - 1) LVIDd (2D) 4.7 cm (3.6 - 5.4) LVIDs (2D) 3.7 cm - LV FS (2D) 21 % (25 - 45) Aortic Annulus 2.3 cm (1.4 - 2.6) Ao root diameter (2D) 3.7 cm (2.1 - 3.5) Aortic arch 3.2 cm (1.8 - 3.4) LA dimension (AP) 2D 3.4 cm (2.3 - 3.8) LAd ISD 4CH 5.4 cm (2.9 - 5.3) LA ISD 4CH W 5.5 cm (2.5 - 4.5) Name Value Normal Range LA ESV SP 4CH (A/L) 96.04 ml - LA ESV SP 2CH (A/L) 45.33 ml - LA ESV BP (A/L) 68.36 ml - LA ESV BP (A/L) index 32.4 ml/m2 - LA ESV SP 4CH (MOD) 91.73 ml - LA ESV SP 2CH (MOD) 43.41 ml - Name Value Normal Range MV E-wave Vmax 0.5 m/sec - MV deceleration time 89 msec - MV A-wave Vmax 0.7 m/sec - MV E:A ratio 0.7 ratio - LV septal e' Vmax 0.06 m/sec - LV lateral e' Vmax 0.05 m/sec - LV E:e' septal ratio 8.3 ratio - LV E:e' lateral ratio 10 ratio - Name Value Normal Range AV Vmax 1.2 m/sec - AV VTI 20.8 cm - AV peak gradient 6 mmHg - AV mean gradient 3.5 mmHg - LVOT Vmax 0.8 m/sec - LVOT VTI 15.4 cm - LVOT peak gradient 2.6 mmHg - LVOT mean gradient 1.6 mmHg - DARREN Vmax 0.5 m/sec - Name Value Normal Range RAP 8 mmHg - IVC diameter 1.9 cm - Name Value Normal Range PV Vmax 0.6 m/sec - PV peak gradient 1.4 mmHg -
[2016-09-12] MEDS ORDERED: Norepinephrine 16MCG/ML IVPRE* 4,000 MCG/250 ML BAG IV ONE (15:53)
[2016-09-12] MEDS ORDERED: Propofol* 100 ML ONE (15:53)
[2016-09-12] MEDS ORDERED: fentaNYL* 50 MCG/ML 5 ML VIAL (250 MCG VIAL) ONE (16:00)
[2016-09-12] MEDS ORDERED: Propofol* 10 MG/ML 20 ML BTL IV PUSH ONE (16:05)
[2016-09-12] MEDS ORDERED: LORazepam INJ* 2 MG/ML 1 ML VIAL IV PUSH PRN (16:25)
[2016-09-12] MEDS ORDERED: Albuterol/Ipratropium NEB.SOL* Albuterol 2.5 MG/Ipratropium 0.5 MG 3 ML INH PRN (16:25)
--- NOTE | 2016-09-12 16:30 | PN ---
Progress Note - Progress Note Date of Service: 09/12/16 Note: CRITICAL CARE MEDICINE PROCEDURE NOTE DATE: 09/12/16 TIME: 1630 SERVICE: Critical Care Medicine LOCATION OF PROCEDURE: ICU PROCEDURE: Endotracheal intubation PROCEDURALIST: Dr. Wright Consent obtain: Yes Time out held: Not indicated INDICATION: Acute respiratory failure. PROCEDURE: Oxygenation maintained and vitals monitored. Patient in supine position. Pre-medication with fentanyl 200mcg / propofol 100mg. Glidescope #3 inserted with Grade 1 view obtained. 8.0 endotracheal tube inserted to 26cm lip. Good chest rise with breath sounds appreciated in bilaterally lung mcmahon. EtCO2 + color change. Portable chest x-ray pending. Patient otherwise tolerated well. Marie Wright, DO
--- NOTE | 2016-09-12 16:33 | PN ---
Progress Note - Progress Note Date of Service: 09/12/16 Note: CRITICAL CARE MEDICINE DATE: 09/12/2016 TIME: 1600 D/w pt and his . Tolerating. HFO2, low dose mina, HR less 110, ms better, but rr still 20s and seemingly more fatigued. We discussed his progress, but needing longer time and course ahead. Discussed intubation and pt agrees to proceed. concurs. Hopeful he can continue to improve and overcome vent need in next 48hrs, versus they also understand, if further surgical needs arise then transfer considerations still potential, but not apparent at this time. See how he does in time. Disposition: ICU care Code Status: Full Critical Care Time: 20min, excluding procedures FEverette Wright, DO
[2016-09-12] MEDS: ZOSYN 3.375 GM Q8H IVPB SCH ×4 (16:58→23:54)
--- NOTE | 2016-09-12 17:11 | RAD ---
INDICATION: Intubation COMPARISON: Chest x-ray 1 2016 TECHNIQUE: An AP portable view obtained at 1653 hours is submitted. FINDINGS: Bones/Soft Tissues: There are no acute bony findings. There is an endotracheal tube in satisfactory position 4 cm above the hasmukh. A nasogastric tube passes normally through the mediastinum Cardiomediastinal: The heart is normal in size. Lungs: There is coarsening of interstitium. The central pulmonary vessels appear slightly less prominent. There is persistent airspace disease in left lung base with obscuration left hemidiaphragm and there is a presumed small left-sided effusion. Pleura: No significant right-sided effusion. Persistent left-sided effusion. Other: None IMPRESSION: ENDOTRACHEAL TUBE IN PROPER POSITION. CHRONIC LUNG FINDINGS. INTERSTITIAL PROMINENCE HAS DECREASED SLIGHTLY. THE INFILTRATE AND PRESUMED PLEURAL FLUID LEFT LUNG BASE APPEARS UNCHANGED
[2016-09-12] MEDS: NS 0.9% w/ 20 Meq KCL 1000 ML* 1,000 ML IV SCH ×2 (17:20→23:58)
[2016-09-12] MEDS: Chlorhexidine MOUTHWASH 0.12%* 15 ML UDC TOPICAL SCH ×2 (17:20→20:07)
[2016-09-12 17:21] LABS: Hematocrit 26 % (42-52); Hemoglobin 8.1 g/dl (14.0-18.0); Mean Corpuscular HGB Conc 32 g/dl (31-36); Mean Corpuscular Hemoglobin 28 pg (27-31); Mean Corpuscular Volume 88 fL (80-94); Mean Platelet Volume 8 um3 (7.4-10.4); Red Blood Count 2.91 10^6/ul (4.0-5.4); Red Cell Distribution Width 15 % (10.5-15)
[2016-09-12 17:34] LABS: Comments Flag Yes
[2016-09-12 17:41] LABS: BUN/Creatinine Ratio 26.6 (8-20); Calcium 7.2 mg/dL (8.6-10.3); EGFR African American 46.4 (>60); EGFR Non-African American 36.1 (>60); Potassium 3.6 mmol/L (3.5-5.0)
[2016-09-12] MEDS: Propofol* 100 ML IV SCH ×2 (18:45→23:02)
[2016-09-12] MEDS: Norepinephrine 16MCG/ML IVPRE* 4,000 MCG/250 ML BAG IV SCH ×2 (18:46→22:05)
[2016-09-12] MEDS: Vancomycin(*) 750 MG in NS 0.9% 250 ML* 250 ML IVPB SCH (21:05)
[2016-09-12] MEDS: fentaNYL* 50 MCG/ML 2 ML VIAL (100 MCG VIAL) IV SLOW PU PRN (23:02)
[2016-09-12] MEDS ORDERED: Acetaminophen ADULT LIQ* 650 MG/20.3 ML UDC PO PRN (23:25)
[2016-09-13] MEDS: Chlorhexidine MOUTHWASH 0.12%* 15 ML UDC TOPICAL SCH ×4 (00:09→12:21)
[2016-09-13] MEDS ORDERED: Ibuprofen ADULT LIQ* 600 MG/30 ML UDC PO PRN (00:51)
[2016-09-13] MEDS: Norepinephrine 16MCG/ML IVPRE* 4,000 MCG/250 ML BAG IV SCH ×5 (01:20→13:14)
[2016-09-13] MEDS: Propofol* 100 ML IV SCH ×2 (02:37→10:39)
[2016-09-13] MEDS ORDERED: Hydrocortisone INJ* 100 MG VIAL IV ONE (03:16)
[2016-09-13] MEDS ORDERED: Hydrocortisone INJ* 100 MG VIAL ONE (03:19)
[2016-09-13] MEDS: Vancomycin(*) 750 MG in NS 0.9% 250 ML* 250 ML IVPB SCH ×2 (03:58→14:16)
[2016-09-13 05:38] LABS: Albumin 2.2 g/dL (3.2-5.2); BUN/Creatinine Ratio 25.9 (8-20); Calcium 7.7 mg/dL (8.6-10.3); EGFR Non-African American 32.7 (>60); Globulin 3.1 g/dL (2-4); Potassium 4.4 mmol/L (3.5-5.0); Total Bilirubin 1.9 mg/dL (0.2-1.0); Total Protein 5.3 g/dL (6.4-8.9)
[2016-09-13 05:42] LABS: Comments Flag Yes; Hematocrit 28 % (42-52); Hemoglobin 9.1 g/dl (14.0-18.0); Mean Corpuscular HGB Conc 33 g/dl (31-36); Mean Corpuscular Hemoglobin 29 pg (27-31); Mean Corpuscular Volume 87 fL (80-94); Mean Platelet Volume 8 um3 (7.4-10.4); Red Blood Count 3.19 10^6/ul (4.0-5.4); Red Cell Distribution Width 15 % (10.5-15); White Blood Count 24.6 10^3/ul (3.5-10.8)
[2016-09-13] MEDS: ZOSYN 3.375 GM Q8H IVPB SCH ×2 (08:18)
[2016-09-13] MEDS ORDERED: Albumin Human 5%* 250 ML BTL IV ONE ×2 (08:42→11:33)
[2016-09-13] MEDS ORDERED: Phytonadione INJ (Adult)* 5 MG in NS 0.9% 50 ML* 50 ML IV ONE (08:48)
[2016-09-13] MEDS ORDERED: Famotidine SUSP* 40 MG/5 ML ORAL.SUSP G TUBE SCH (09:00)
[2016-09-13] MEDS: fentaNYL* 50 MCG/ML 2 ML VIAL (100 MCG VIAL) IV SLOW PU PRN ×2 (09:31→10:53)
[2016-09-13] MEDS ORDERED: Hydrocortisone INJ* 100 MG VIAL IV SCH (10:00)
[2016-09-13] MEDS: Docusate CAP* 100 MG PO SCH (10:16)
--- NOTE | 2016-09-13 10:35 | RAD ---
INDICATION: Large left-sided retroperitoneal fluid/soft tissue collection COMPARISON: CT of the abdomen and pelvis dated September 11, 2016 TECHNIQUE: Real time ultrasound images of the left lower quadrant and flank were acquired in farley scale and Doppler color flow. FINDINGS: Sonographic imaging reveals a large retroperitoneal echogenic structure measuring up to 16 cm in greatest dimension. This collection exhibits no internal vascularity. IMPRESSION: Large retroperitoneal collection representing either a soft tissue mass or chronic retroperitoneal hematoma.
--- NOTE | 2016-09-13 10:40 | PN ---
Progress Note - Progress Note Date of Service: 09/13/16 Note: CRITICAL CARE MEDICINE DATE: 09/13/2016 TIME: 900 SUBJECTIVE: Patient seen and examined. Tolerating overnight. levo at 20. Hr down to 60s. sbp >90. map >70. did spike fever overnight. stress dose steroids added. PHYSICAL EXAM: Vital Signs: Reviewed. less sedation this am and Hr to 90s, SBP 90-100s. RR ~20 with mv ~14lpm. FiO2 50%. afeb. Neurologic: awakes but not communicating at this time (remaining on prop) HEENT: anicteric, trammell, mm dry, ett in place. Cardiovascular: distant, s1 s2, no m Respiratory: crackles bl but better. mild prolonged exhalation phase. Abdomen: soft, left flank palpable Extremities: warmish to touch, mild dep edema Access: piv & R picc LABS: Reviewed. IMAGING: Reviewed. MEDICATIONS: Reviewed. ASSESSMENT: 65 M Septic shock - source still questionable. would seem to be gram neg, and abd in origin, and still lingering. Have to question this hematoma/mass further as potential source, and need for source control. Acute renal injury on admission Mild lactic acidosis - resolved Mild septic encephalopathy - had improved. Acute hypoxic respiratory failure - stabilized, but vdrf at present Malnutrition moderate degree Left adrenal hemorrhagic/tumor Anemia of acute on chronic disease Mild consumptive coagulopathy PLAN: Neurologic: keep on lower dose prop today. blunt fevers. Cardiovascular: perfusing, but intravsaacular vol still problematic with interstial volume up yet still in Ebb phase. Challenge with collloid today and see if levophed can wean. echo relatively ok yesterday. Respiratory: attempted aprv this am for recruitment, but given underlying emphysema ailments, he did not enjoy and traded to high peep cpap. wean fiO2 and will need to mobilize water ultimately. Gastrointestinal: receiving trickle tf and will increased if no surgical needs soon. ask IR to eval hematoma/mass for aspiration/drain if any discernable pus. As d/w pts , if this is clot and source then pt would need transfer for possible surgical needs, vs waiting out if only clot burden. Renal/Metabolic: cody on admission hopefully stabilizing with components of atn. Non-oliguric. f/u Infectious Disease: vanco/zosyn. cultures ngtd thusfar, and eval for mass cultures today. Hematology: Hb actually as intravascularly not maintaining hemodilution given ebb phase. No signs of bleeding. eval today and consider vte prophy, but given bx needs, give vit K and assure stability prior to initiation. Endocrine: stress dose steroids given levo requirements continued. BG reactive. ssi. Musculoskeletal: bedrest currently. pain control prn Psych/Social: updated at length and expressed understanding, especially in regards to trigers for potential transfer needs. Supportive and preventative care as ordered. SUP: H2 VTE prophylaxis: scds Gonzalez catheter given critical illness, monitoring needs for accurate assessment of CODY and KDIGO criteria for critically ill patients and to avoid potential harms of urinary retention, skin breakdown/ulcers. Disposition: critical, ICU care Code Status: Full Critical Care Time: 50min Marie Wright DO
--- NOTE | 2016-09-13 11:55 | DS ---
CRITICAL CARE MEDICINE DISCHARGE SUMMARY ADMISSION DATE: 09/11/2016 ICU ADMISSION DATE: 09/12/2016 ICU DISCHARGE DATE: 09/13/2016 PRIMARY CARE PROVIDER: Loc. REFERRING PHYSICIAN: Princess. DIAGNOSIS: 1. Septic shock. 2. Left retroperitoneal abscess. 3. Septic encephalopathy on admission. 4. Acute hypoxic respiratory failure. 5. Acute renal failure on admission, with component of acute tubular necrosis. 6. Malnutrition, moderate degree. 7. Consumptive coagulopathy. 8. Anemia of acute and chronic disease. 9. History of splenic artery aneurysm. 10. History of sarcoid. MEDICATIONS AT DISCHARGE: Acetaminophen (Tylenol Adult Liq*) 650 mg PO Q4H PRN PRN Reason: FEVER/PAIN Last Admin: 09/12/16 23:54 Dose: 650 mg Albuterol/Ipratropium (Duoneb (Albuterol 2.5 Mg/Ipratropium 0.5 Mg)) 1 neb INH Q4H PRN PRN Reason: SOB/WHEEZING Last Admin: 09/13/16 08:50 Dose: 1 neb Chlorhexidine Gluconate (Peridex Mouth Wash 0.12%*) 15 ml TOPICAL Q4H [facility] Last Admin: 09/13/16 08:18 Dose: 15 ml Docusate Sodium (Colace Cap*) 100 mg PO BID [facility] Last Admin: 09/13/16 10:16 Dose: Not Given Famotidine (Pepcid Susp*) 20 mg G TUBE DAILY [facility] Fentanyl Citrate (Fentanyl*) 50 mcg IV SLOW PU Q2H PRN PRN Reason: PAIN Last Admin: 09/13/16 10:53 Dose: 50 mcg Heparin Sodium (Porcine) (Heparin Flush Picc/Ml/Cvc(*)) 1 - 3 ml FLUSH 0600, 1800 [facility] PRN Reason: Protocol Last Admin: 09/13/16 04:20 Dose: Not Given Hydrocortisone Sodium Succinate (Solu-Cortef*) 50 mg IV Q8H [facility] Piperacillin Sod/Tazobactam (Sod 3.375 gm/ Sodium Chloride) 100 mls @ 200 mls/ hr IVPB Q8H [facility] Last Admin: 09/13/16 08:18 Dose: 25 mls/hr Vancomycin HCl 750 mg/ Sodium (Chloride) 250 mls @ 166.667 mls/hr IVPB Q8H [facility] Last Admin: 09/13/16 03:58 Dose: 166.667 mls/hr Norepinephrine Bitartrate (Levophed 16 Mcg/Ml Premix Bag*) 4,000 mcg in 250 mls @ 37.5 mls/hr IV .INITIAL RATE [facility] PRN Reason: 10 MCG/MIN Last Admin: 09/13/16 09:16 Dose: 37.5 mls/hr Propofol (Diprivan*) 100 mls @ 0 mls/hr IV .(Initial Rate) [facility]OL[facility]; Per Protocol PRN Reason: Protocol Last Admin: 09/13/16 10:39 Dose: 16.4 mls/hr Sodium Chloride (Ns 0.9% 1000 Ml*) 1,000 mls @ 150 mls/hr IV PER RATE [facility] Pharmacy Consult (Vancomycin Per Pharmacy*) 1 note FOLLOW UP . PRN PRN Reason: PER PROTOCOL Pharmacy Consult (Zosyn Per Pharmacy*) 1 note FOLLOW UP .ZOSYN PER PHARMACY [facility] Pharmacy Profile Note (Vancomycin Trough Check) 1 note FOLLOW UP 1200 ONE Stop: 09/13/16 12:01 Tramadol HCl (Ultram*) 50 mg PO Q6H PRN PRN Reason: PAIN Last Admin: 09/12/16 03:21 Dose: 50 mg Only current outpatient medication had been: Tramadol 50mg q6h prn. ALLERGIES: Levofloxacin. SSRI. HOSPITAL COURSE: 65 year old male admitted with fatigue and altered mental status, with recent workup for left adrenal mass (~8cm) from CT scan done 2016. Had surgical evaluation at [facility] and plans for surgery later this month. Status decline at home over last few weeks with lethargy, anorexia, and then confusion. Admitted and developed fever and treatment for pneumonia, with mild airspace disease. Condition worse on 09/12/16 morning and placed on high flow oxygen in ICU. Mental status improved but still had to maintain work of breathing, ultimately with discussions for intubation which we proceeded with. Antibiotics upgraded to vancomycin and zosyn. Fluid resuscitation continued, although left marginally on dry side. Stress dose steroids added. Tolerated overnight, but remained on levophed, spiked fever, with increased leukocytosis. IR consulted with needle aspiration and drain placed into retroperitoneal region abscess, anterior approach, with green pus drainage produced. Decision to transfer for higher level of surgical care. Accepted at [facility], awaiting bed. aware. DISPOSITION: Graciously accepted by Dr. Hilda Cuenca (ICU) at [facility]. DIET: Remains with ogt, on trickle feeds: promote 10ml/hr. ACTIVITY: Bedrest currently. CODE STATUS: FULL. SPECIAL INSTRUCTIONS: Flush retroperitoneal drain with 10ml NS every 8 hours. Right PICC standard care. Mechanical ventilation: Pressure control, Pinsp 16, iTime 1.0, Peep 10, backup rate 12, FiO2 50%. FOLLOW UP: with treating medical services. Marie Wright DO
[2016-09-13] MEDS ORDERED: Vancomycin Trough Check NOTE FOLLOW UP ONE (12:00)
--- NOTE | 2016-09-13 12:00 | RAD ---
CPT II Codes: 6100F INDICATION: Fever and pain in the presence of a large left retroperitoneal collection COMPARISON: CT of the abdomen dated September 11, 2016 ANESTHESIA: 1% lidocaine injected locally. The patient received intravenous fentanyl. Cardiopulmonary status was monitored by Dr. Hamilton and the ICU medical staff in the ICU. PROCEDURE NOTE: The procedure was performed at the ICU bedside utilizing portable ultrasound imaging. The benefits and risks of procedure explained to the patient's and the patient's signed informed consent. Multiple images of the left abdominal collection were obtained. The fluid collection in question was identified and a percutaneous tract was determined. A time out was performed before beginning the procedure. The patient was prepped and draped in the usual sterile fashion. The skin and tissue overlying the fluid collection were anesthetized with 1% lidocaine. Utilizing ultrasound guidance an 18-gauge needle was advanced into the collection and easily aspirated 10 mL of opaque yellow-green purulent fluid. This was provided to the attending cytopathologist who confirmed under microscopy at this was pus. Percutaneously, a 10 [place] pigtail drain was inserted into the collection under sonographic guidance according to the trocar technique. The drainage tube was secured to the skin and dressed with sterile gauze. The tube was attached to a three-way stopcock valves and drainage bag. A sample of fluid was aspirated into a syringe and sent to the laboratory for testing. The post procedure ultrasound demonstrates the drain in appropriate position and no evidence for hematoma. The patient tolerated procedure well without incident. IMPRESSION: Uncomplicated ultrasound-guided fine-needle aspiration followed by placement of a 10 [place] pigtail drainage catheter into the patient's large left abdominal/retroperitoneal purulent collection.
--- NOTE | 2016-09-13 12:53 | ED ---
Caitlin Ernst Edward, scribed for Allyn Boudreaux MD on 09/11/16 at 1134 . Complex/Multi-Sys Presentation - HPI Summary HPI Summary: 65 y/o male presents to ED c/o gradual onset AMS and decreased appetite for a few weeks. The patient has become more and more confused and forgetful over the weeks. Pt also has difficulty walking and fell yesterday but did not hit his head. Associated sx: weight loss (at least 25 lbs), chronic L sided back pain. PMHx adrenal gland tumor (08/10/16), sarcoidosis. 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 - Onset/Duration: Lasting Weeks Associated Signs And Symptoms: Positive: Confusion, Back Pain - Chronic L sided , Other - Decreased appetite, weight loss, difficulty walking - Allergies/Home Medications Allergies/Adverse Reactions: Allergies Allergy/AdvReac Type Severity Reaction Status Date / Time Levofloxacin [From Levaquin] Allergy Insomnia Verified 09/11/16 11:15 Serotonin Reuptake Inhibitors Allergy Anxiety Verified 09/13/16 08:59 SSRI Allergy Anxiety Uncoded 09/11/16 11:15 Home Medications: Home Medications traMADol TAB* [Ultram*] 25 mg PO TID 09/11/16 [History Confirmed 09/11/16] PMH/Surg Hx/FS Hx/Imm Hx Previously Healthy: No Endocrine/Hematology History: Denies: Hx Anticoagulant Therapy, Hx Diabetes, Hx Thyroid Disease Cardiovascular History: Reports: Hx Hypertension Denies: Hx Pacemaker/ICD Respiratory History: Reports: Hx Chronic Obstructive Pulmonary Disease (COPD), Hx Sleep Apnea - RECENTLY DIAGNOSIS, Other Respiratory Problems/Disorders - OCCASIONAL SHORTNESS OF BREATH Denies: Hx Asthma GI History: Reports: Hx Gastroesophageal Reflux Disease, Hx Hiatal Hernia - SURGICALLY REPAIRED 1999 History: Reports: Other Problems/Disorders - HISTORY OF PROSTATECTOMY Denies: Hx Renal Disease Musculoskeletal History: Reports: Hx Tendonitis - RIGHT ELBOW Sensory History: Reports: Hx Contacts or Glasses - GLASSES Denies: Hx Hearing Aid Opthamlomology History: Reports: Hx Contacts or Glasses - GLASSES Neurological History: Reports: Hx Migraine - SIDE EFFECT OF SARCARDIOSIS, Other Neuro Impairments/Disorders - SYSTEMIC INFLAMMATION Denies: Hx Dementia, Hx Seizures Psychiatric History: Denies: Hx Substance Abuse - Cancer History Cancer Type, Location and Year: prostate - Surgical History Surgery Procedure, Year, and Place: VASECTOMY, OFFICE. 1992 BRONCHOSCOPY , [facility]. [place] [facility] [place] [facility] [place] Anesthesia Reactions: No Infectious Disease History: Yes Infectious Disease History: Denies: Hx Hepatitis, Hx Human Immunodeficiency Virus (HIV), Traveled Outside the [place] in Last 30 Days - Family History Known Family History: Negative: Cardiac Disease Family History: no reported cardio vascular issues in family lineage - Social History Alcohol Use: None Substance Use Type: Reports: None Smoking Status (MU): Former Smoker Review of Systems Constitutional: Negative Eyes: Negative ENT: Negative Cardiovascular: Negative Respiratory: Negative Gastrointestinal: Other - Decreased appetite Genitourinary: Negative Positive: Myalgia - Chronic L sided back pain Skin: Negative Neurological: Other - Confusion, forgetfulness, difficulty walking Positive: Weakness Psychological: Normal All Other Systems Reviewed And Are Negative: Yes Physical Exam Triage Information Reviewed: Yes Vital Signs On Initial Exam: Initial Vitals Temp Pulse Resp BP Pulse Ox 98.2 F 133 24 115/72 97 09/11/16 10:50 09/11/16 10:50 09/11/16 10:50 09/11/16 10:50 09/11/16 10:50 Vital Signs Reviewed: Yes Appearance: Positive: No Pain Distress, Ill-Appearing - Mildly Skin: Positive: Warm, Skin Color Reflects Adequate Perfusion, Dry Eyes: Positive: EOMI, CISCO ENT: Positive: Pharynx normal, TMs normal Neck: Positive: Supple, Nontender Respiratory/Lung Sounds: Positive: Clear to Auscultation, Breath Sounds Present. Negative: Rales, Rhonchi, Wheezes Cardiovascular: Positive: RRR, Other - No gallop. Negative: Murmur, Rub Abdomen Description: Positive: Nontender, Soft, Other: - No rebound. Negative: Distended, Guarding Bowel Sounds: Positive: Present Musculoskeletal: Positive: Strength/ROM Intact. Negative: Edema Left, Edema Right Neurological: Positive: Sensory/Motor Intact, Alert, Oriented to Person Place, Time, CN Intact II-III, Other - Could not tell what month it was. Psychiatric: Positive: Affect/Mood Appropriate - [place] Coma Scale Coma Scale Total: 14 Diagnostics - Vital Signs Vital Signs Temp Pulse Resp BP Pulse Ox 09/11/16 11:14 126 95 07/31/17 11:12 125/80 09/11/16 11:08 98.5 F 125 18 125/80 96 09/11/16 10:50 98.2 F 133 24 115/72 97 - Laboratory Lab Results: Lab Results 09/11/16 09/11/16 09/11/16 Range/Units 11:54 11:54 11:54 WBC 14.3 H (3.5-10.8) 10^3/ul RBC 3.46 L (4.0-5.4) 10^6/ul Hgb 9.9 L (14.0-18.0) g/dl Hct 30 L (42-52) % MCV 86 (80-94) fL MCH 29 (27-31) pg MCHC 33 (31-36) g/dl RDW 15 (10.5-15) % Plt Count 220 (150-450) 10^3/ul MPV 7 L (7.4-10.4) um3 Neut % (Auto) 93.5 H (38-83) % Lymph % (Auto) 1.3 L (25-47) % [place] % (Auto) 4.9 (1-9) % Eos % (Auto) 0 (0-6) % Baso % (Auto) 0.3 (0-2) % Absolute Neuts (auto) 13.3 H (1.5-7.7) 10^3/ul Absolute Lymphs (auto) 0.2 L (1.0-4.8) 10^3/ul Absolute Monos (auto) 0.7 (0-0.8) 10^3/ul Absolute Eos (auto) 0 (0-0.6) 10^3/ul Absolute Basos (auto) 0 (0-0.2) 10^3/ul Absolute Nucleated RBC 0.01 10^3/ul Nucleated RBC % 0 INR (Anticoag Therapy) (0.89-1.11) APTT (26.0-36.3) seconds Sodium 123 L (133-145) mmol/L Potassium 4.5 (3.5-5.0) mmol/L Chloride 88 L (101-111) mmol/L Carbon Dioxide 25 (22-32) mmol/L Anion Gap 10 (2-11) mmol/L BUN 46 H (6-24) mg/dL Creatinine 1.58 H (0.67-1.17) mg/dL Est GFR ( Amer) 56.7 (>60) Est GFR (Non-Af Amer) 44.1 (>60) BUN/Creatinine Ratio 29.1 H (8-20) Glucose 230 H (70-100) mg/dL Lactic Acid (0.5-2.0) mmol/L Calcium 9.0 (8.6-10.3) mg/dL Total Bilirubin 1.50 H (0.2-1.0) mg/dL AST 38 (13-39) U/L ALT 19 (7-52) U/L Alkaline Phosphatase 129 H (34-104) U/L Troponin I 0.03 (<0.04) ng/mL C-Reactive Protein 350.05 H (< 5.00) mg/L Total Protein 6.7 (6.4-8.9) g/dL Albumin 2.6 L (3.2-5.2) g/dL Globulin 4.1 H (2-4) g/dL Albumin/Globulin Ratio 0.6 L (1-3) Urine Color Laura Urine Appearance Cloudy Urine pH 5.0 (5-9) Ur Specific [place] 1.021 (1.010-1.030) Urine Protein 1+(30 mg/dl) H (Negative) Urine Ketones Negative (Negative) Urine Blood 2+ H (Negative) Urine Nitrate Negative (Negative) Urine Bilirubin Negative (Negative) Urine Urobilinogen Negative (Negative) Ur Leukocyte Esterase Negative (Negative) Urine WBC (Auto) 1+(6-10/hpf) H (Absent) Urine RBC (Auto) 2+(6-10/hpf) H (Absent) Ur Squamous Epith Cells Present H (Absent) Urine Bacteria Absent (Absent) Urine Glucose 1+(50 mg/dl) H (Negative) 09/11/16 09/11/16 Range/Units 11:54 11:54 WBC (3.5-10.8) 10^3/ul RBC (4.0-5.4) 10^6/ul Hgb (14.0-18.0) g/dl Hct (42-52) % MCV (80-94) fL MCH (27-31) pg MCHC (31-36) g/dl RDW (10.5-15) % Plt Count (150-450) 10^3/ul MPV (7.4-10.4) um3 Neut % (Auto) (38-83) % Lymph % (Auto) (25-47) % [place] % (Auto) (1-9) % Eos % (Auto) (0-6) % Baso % (Auto) (0-2) % Absolute Neuts (auto) (1.5-7.7) 10^3/ul Absolute Lymphs (auto) (1.0-4.8) 10^3/ul Absolute Monos (auto) (0-0.8) 10^3/ul Absolute Eos (auto) (0-0.6) 10^3/ul Absolute Basos (auto) (0-0.2) 10^3/ul Absolute Nucleated RBC 10^3/ul Nucleated RBC % INR (Anticoag Therapy) 1.43 H (0.89-1.11) APTT 33.3 (26.0-36.3) seconds Sodium (133-145) mmol/L Potassium (3.5-5.0) mmol/L Chloride (101-111) mmol/L Carbon Dioxide (22-32) mmol/L Anion Gap (2-11) mmol/L BUN (6-24) mg/dL Creatinine (0.67-1.17) mg/dL Est GFR ( Amer) (>60) Est GFR (Non-Af Amer) (>60) BUN/Creatinine Ratio (8-20) Glucose (70-100) mg/dL Lactic Acid 2.9 H* (0.5-2.0) mmol/L Calcium (8.6-10.3) mg/dL Total Bilirubin (0.2-1.0) mg/dL AST (13-39) U/L ALT (7-52) U/L Alkaline Phosphatase (34-104) U/L Troponin I (<0.04) ng/mL C-Reactive Protein (< 5.00) mg/L Total Protein (6.4-8.9) g/dL Albumin (3.2-5.2) g/dL Globulin (2-4) g/dL Albumin/Globulin Ratio (1-3) Urine Color Urine Appearance Urine pH (5-9) Ur Specific [place] (1.010-1.030) Urine Protein (Negative) Urine Ketones (Negative) Urine Blood (Negative) Urine Nitrate (Negative) Urine Bilirubin (Negative) Urine Urobilinogen (Negative) Ur Leukocyte Esterase (Negative) Urine WBC (Auto) (Absent) Urine RBC (Auto) (Absent) Ur Squamous Epith Cells (Absent) Urine Bacteria (Absent) Urine Glucose (Negative) Result Diagrams: 09/13/16 05:15 09/13/16 05:15 Lab Statement: Any lab studies that have been ordered have been reviewed, and results considered in the medical decision making process. - Radiology CXR Xray Interpretation: Positive (See Comments) - New L sided effusion. Hyperinflated lung Radiology Interpretation Completed By: Radiologist - CT BRAIN CT CT Interpretation: No Acute Changes - NO EVIDENCE FOR ACUTE INTRACRANIAL ABNORMALITY CT Interpretation Completed By: Radiologist - EKG 1 EKG Rhythm: Sinus Tachycardia - @ 121 bpm EKG Interpretation: 12:36 EKG Comparison: No Significant Change - 08/19/16 Complex Multi-Symp Course/Dx Course Of Treatment: 65 yo with adrenal mass elevated wbc, altered mental status and sl elevated lactic, rehydrated and antibiotics ordered case discussed with Dr. Villarreal for admission - Diagnoses Provider Diagnoses: Altered mental status, Dehydration - Physician Notifications Discussed Care Of Patient With: Beverly Villarreal Time Discussed With Above Provider: 12:45 Instructed by Provider To: Admit As Inpatient Discharge - Discharge Plan Condition: Stable Disposition: ADMITTED TO [facility] The documentation as recorded by the Caitlin sunshine Edward accurately reflects the service I personally performed and the decisions made by , Allyn Boudreaux MD.
[2016-09-13 14:11] VITALS: BP 99/73
[2016-09-13 16:24] LABS: Body Fluid WBC 132454 /mcL
[2016-09-13 16:25] LABS: Body Fluid Appearance Cloudy
== END 2016-09-13 14:00 | disposition short-term general hospital (02) | DRG 871 ==
LOC: ED 10:40 → MED 13:46 → ICU 17:58
PROVIDERS: ADMIT Internal Medicine; ATTEND Internal Medicine Critical Care Medicine
PROC: 0BH17EZ Insertion of Endotracheal Airway into Trachea, Via Natural or Artificial Opening (ICD-10-PCS; principal; 2016-09-12)
PROC: 02HV33Z Insertion of Infusion Device into Superior Vena Cava, Percutaneous Approach (ICD-10-PCS; 2016-09-12)
PROC: 5A1935Z Respiratory Ventilation, Less than 24 Consecutive Hours (ICD-10-PCS; 2016-09-12)
PROC: 0W9H30Z Drainage of Retroperitoneum with Drainage Device, Percutaneous Approach (ICD-10-PCS; 2016-09-13)
DX: A41.9 Sepsis, unspecified organism (principal); R65.21 Severe sepsis with septic shock; J96.01 Acute respiratory failure with hypoxia; D65 Disseminated intravascular coagulation [defibrination syndrome]; N17.0 Acute kidney failure with tubular necrosis; I11.0 Hypertensive heart disease with heart failure; K68.19 Other retroperitoneal abscess; I50.9 Heart failure, unspecified; G93.41 Metabolic encephalopathy; E44.0 Moderate protein-calorie malnutrition; E87.1 Hypo-osmolality and hyponatremia; E87.2 Acidosis; D63.8 Anemia in other chronic diseases classified elsewhere; D64.9 Anemia, unspecified; K21.9 Gastro-esophageal reflux disease without esophagitis; D86.9 Sarcoidosis, unspecified; E27.9 Disorder of adrenal gland, unspecified; E86.0 Dehydration; N40.0 Benign prostatic hyperplasia without lower urinary tract symptoms; I25.10 Atherosclerotic heart disease of native coronary artery without angina pectoris; G89.29 Other chronic pain; R10.9 Unspecified abdominal pain; M54.9 Dorsalgia, unspecified; J44.9 Chronic obstructive pulmonary disease, unspecified; G43.909 Migraine, unspecified, not intractable, without status migrainosus; R40.2412 Glasgow coma scale score 13-15, at arrival to emergency department; G47.33 Obstructive sleep apnea (adult) (pediatric); Z68.28 Body mass index [BMI] 28.0-28.9, adult; Z85.46 Personal history of malignant neoplasm of prostate; Z90.79 Acquired absence of other genital organ(s); Z88.8 Allergy status to other drugs, medicaments and biological substances; Z88.1 Allergy status to other antibiotic agents; Z82.49 Family history of ischemic heart disease and other diseases of the circulatory system; Z82.0 Family history of epilepsy and other diseases of the nervous system; Z87.891 Personal history of nicotine dependence; Z98.52 Vasectomy status; Z95.820 Peripheral vascular angioplasty status with implants and grafts
CPT/HCPCS: 36415; 36600; 49406; 70450; 71010; 71020; 71250; 74176; 76705; 80048; 80053; 80202; 80500; 81003; 81015; 82803; 83605; 83735; 84100; 84484; 85014; 85018; 85025; 85027; 85610; 85730; 86140; 87040; 87070; 87073; 87102; 87116; 87205; 87206; 87641; 87899; 88172; 88173; 89051; 93005; 93306; 94002; 94003; 94760; A9270-GY; C1751; C8929; J0456; J0696; J1160; J1720; J1940; J2060; J2270; J2543; J2704; J3010; J3370; J3430; J3475; P9045